=== PATIENT | female | born 1975 ===

== ENCOUNTER → 2019-04-13 | Outpatient (CLI) | payer OTHER ==
[~2019-04-13] MED LIST: ASA81 MG PO; PRENATAL TABLE1 EAC1 PO; SYNTHROID75 MCG PO
== END | disposition home or self-care (01) ==
LOC: PRENATAL 13:30
DX: O26.893 Other specified pregnancy related conditions, third trimester (principal); O09.523 Supervision of elderly multigravida, third trimester

== ENCOUNTER 2019-04-18 14:50 | Inpatient (IN) | payer OTHER ==
[~2019-04-18] VITALS: Ht 162.6 cm; Wt 83.9 kg
[2019-04-20] MEDS ORDERED: ASA81 MG PO (10:00)
[2019-04-20] MEDS ORDERED: SYNTHROID75 MCG PO (10:00)
[2019-04-20] MEDS ORDERED: PRENATAL TABLE1 EAC1 PO (10:01)
== END 2019-04-24 18:05 | disposition home or self-care (01) | DRG 806 ==
LOC: OB/GYN 14:50 → LDR 04-20 08:56 → OB/GYN 04-21 08:05
PROVIDERS: ADMIT Specialist
PROC: 10E0XZZ Delivery of Products of Conception, External Approach (ICD-10-PCS; principal; 2019-04-21)
PROC: 0KQM0ZZ Repair Perineum Muscle, Open Approach (ICD-10-PCS; 2019-04-21)
PROC: 4A0HXFZ Measurement of Products of Conception, Cardiac Rhythm, External Approach (ICD-10-PCS; 2019-04-21)
PROC: 0W8NXZZ Division of Female Perineum, External Approach (ICD-10-PCS; 2019-04-21)
PROC: 3E033VJ Introduction of Other Hormone into Peripheral Vein, Percutaneous Approach (ICD-10-PCS; 2019-04-21)
DX: O70.1 Second degree perineal laceration during delivery (principal); O36.0930 Maternal care for other rhesus isoimmunization, third trimester, not applicable or unspecified; Z37.0 Single live birth; O99.284 Endocrine, nutritional and metabolic diseases complicating childbirth; E03.8 Other specified hypothyroidism; O69.81X0 Labor and delivery complicated by cord around neck, without compression, not applicable or unspecified; Z3A.40 40 weeks gestation of pregnancy; Z22.330 Carrier of Group B streptococcus

== ENCOUNTER → 2021-05-01 15:25 | Outpatient (CLI) | payer OTHER | END | disposition home or self-care (01) | LOC: LAB 15:25 | PROVIDERS: ATTEND Specialist | DX: O03.9 Complete or unspecified spontaneous abortion without complication (principal); O03.30 Unspecified complication following incomplete spontaneous abortion; O00.109 Unspecified tubal pregnancy without intrauterine pregnancy ==